=== PATIENT | male | born 1945 | race Caucasian/White ===

== ENCOUNTER 2017-06-17 07:17 | Outpatient (CLI) | payer MEDICARE, BC ==
--- NOTE | 2017-06-17 09:30 | RAD ---
TWO VIEWS CHEST: Date: 06-17-17 Comparison: 11-26-16 FINDINGS: Two views chest demonstrates development of a 19 mm area of soft tissue density in the anterior/infer ior aspect of the left upper lobe. This is compatible with a newly developed mass. Considering the pa tient's history, malignancy cannot be excluded. I do recommend correlation with contrast enhanced CT of the chest. No other obvious lung parenchymal lesions seen. IMPRESSION: Newly developed soft tissue mass in the left upper lobe. Considering the patient's history metastatic disease cannot be excluded. POS: [facility]
--- NOTE | 2017-06-17 09:51 | CT ---
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 FINDINGS: Noncontrast-enhanced CT images of the abdomen and pelvis were obtained. The lung bases are unremarkable. The lesions noted on this chest radiograph are not visible on the C T. The liver and spleen are unremarkable. The pancreas and gallbladder are unremarkable. The left kidn ey has been surgically removed. The right kidney contains small calcifications compatible with renal calculi. Mid pole right renal hypodense lesion is seen most compatible with a cyst or a possible cy stic mass. No evidence of periaortic lymphadenopathy is seen. There is an umbilical hernia with no evidence of bowel herniation through it. No dilated loops of bowel seen. The colon is unremarkable. Moderate multilevel lumbar degenerative changes seen. Previous left-sided nephrectomy. No definite evidence of osseous lesion seen. Exam is limited due t o the fact that IV contrast was not given. POS: [facility]
== END 2017-06-17 07:18 | disposition home or self-care (01) ==
LOC: SCSCT 07:17
PROVIDERS: ATTEND Urology
DX: C64.2 Malignant neoplasm of left kidney, except renal pelvis (principal); R91.8 Other nonspecific abnormal finding of lung field
CPT/HCPCS: 36415; 71030; 74176; 80069; 81001; 85025

== ENCOUNTER 2017-07-08 10:09 | Outpatient (CLI) | payer MEDICARE, BC ==
--- NOTE | 2017-07-08 12:31 | CT ---
CHEST CT SCAN WITHOUT IV CONTRAST: History: 72-year-old male with history of malignant neoplasm in the left kidney except renal pelvis. FINDINGS: There is a 1.7 x 1.8 cm diameter somewhat poorly circumscribed pulmonary nodule in the left upper lob e region anteriorly, probably in the lingula. There is no mediastinal mass or adenopathy. No pleural effusion or pericardial effusion. Post-operative changes in the left upper retroperitoneum evidence f or prior nephrectomy. IMPRESSION: Anterior left upper lung pulmonary nodule evidence for metastasis. This is certainly consistent with a metastasis. POS: [facility]
--- NOTE | 2017-07-08 15:41 | NM ---
EXAM: WHOLE BODY BONE SCAN: History Renal cell cancer. Malignant neoplasm of the kidney. COMPARISON: 04/04/15. TECHNIQUE: The patient was administered 3 mCi of Technetium 99m MDP intravenously. After appropriate delay, who le body imaging was performed. FINDINGS: There is expected distribution of the radiotracer in the soft tissues. There is a photopenic area co mpatible with left nephrectomy. Uptake in both shoulders, bilateral feet and ankles due to degenerat layo change. Uptake in both 1st metatarsophalangeal joint spaces may be due to degenerative versus go ut. Degenerative changes in the cervical spine are noted. IMPRESSION: No scintigraphic evidence of osseous metastases. No additional findings. POS: [facility]
== END 2017-07-08 10:10 | disposition home or self-care (01) ==
LOC: CT 10:09
PROVIDERS: ATTEND Urology
DX: C64.2 Malignant neoplasm of left kidney, except renal pelvis (principal); C78.02 Secondary malignant neoplasm of left lung
CPT/HCPCS: 71250; 78306; A9503

== ENCOUNTER 2017-09-08 14:19 | Outpatient (CLI) | payer MEDICARE, BC ==
--- NOTE | 2017-09-08 14:49 | RAD ---
PA AND LATERAL VIEWS OF CHEST: Date: 09/08/17 HISTORY: Malignant neoplasm of the upper lobe. FINDINGS: The heart size is normal. The lungs are expanded without focal areas of consolidation, pneumothorax, lung masses, or pleural effusions. 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 There are degenerative changes in the spine. IMPRESSION: No radiographic evidence of acute cardiopulmonary process. POS: [facility]
== END 2017-09-08 14:20 | disposition home or self-care (01) ==
LOC: RAD 14:19
PROVIDERS: ATTEND Thoracic Surgery (Cardiothoracic Vascular Surgery)
DX: C34.12 Malignant neoplasm of upper lobe, left bronchus or lung (principal)
CPT/HCPCS: 71046

== ENCOUNTER 2017-11-21 08:15 | Outpatient (CLI) | payer MEDICARE, BC | END 2017-11-21 08:16 | disposition home or self-care (01) | LOC: BICCT 08:15 | PROVIDERS: ATTEND Internal Medicine Hematology & Oncology | DX: C64.2 Malignant neoplasm of left kidney, except renal pelvis (principal); R91.1 Solitary pulmonary nodule; Z90.5 Acquired absence of kidney | CPT/HCPCS: 71250; 74177 ==

== ENCOUNTER 2018-08-07 08:22 | Outpatient (CLI) | payer MEDICARE, BC ==
--- NOTE | 2018-08-07 11:08 | CT ---
CT CHEST WITHOUT CONTRAST CT ABDOMEN AND PELVIS WITHOUT CONTRAST: Date: 08-07-18 Provided Clinical History: History of renal cancer. FINDINGS: Comparison 11-21-17. Post-operative changes of the left hemithorax appear stable. There is new noncalcified 5 mm right low er lobe pulmonary nodule adjacent to the right hemidiaphragm. The lungs appear otherwise free of sign ificant opacity. Heart, pericardium, and great vessels are suboptimally evaluated in the absence of I V contrast material but demonstrates stable unenhanced CT appearance. No pleural fluid or pneumothora x evident. The airway appears patent and of normal caliber. Post-operative changes of left nephrectomy are re-demonstrated. Stable hypodense focus involving the right kidney. Solid abdominal organs are suboptimally evaluated in the absence of IV contrast materia l but demonstrate a stable un-enhanced CT appearance. There is no bowel dilatation, inflammatory fat stranding, free fluid or lymph node enlargement appare nt. Vascular calcifications are seen. The osseous structures demonstrate no concerning osteoblastic or osteolytic lesions. IMPRESSION: 1. Interval development of 5 mm right lower lobe pulmonary nodule, for which follow up is recommended . 2. Otherwise stable exam. POS: [facility]
== END 2018-08-07 08:23 | disposition home or self-care (01) ==
LOC: BICCT 08:22
PROVIDERS: ATTEND Internal Medicine Hematology & Oncology
DX: C64.2 Malignant neoplasm of left kidney, except renal pelvis (principal); R91.1 Solitary pulmonary nodule
CPT/HCPCS: 71250; 74177

== ENCOUNTER 2018-11-06 08:27 | Outpatient (CLI) | payer MEDICARE, BC ==
--- NOTE | 2018-11-06 09:30 | CT ---
CT OF THE CHEST WITHOUT CONTRAST CT OF THE ABDOMEN AND PELVIS WITHOUT CONTRAST: COMPARISON: 08/07/2018. HISTORY: Left renal cell carcinoma status post nephrectomy. Pulmonary nodule is seen on the right lower lobe on prior imaging. TECHNIQUE: 1. Multiple contiguous axial images were obtained in a CT of the chest without contrast. Coronal re formats were performed. 2. Multiple contiguous axial images were obtained in a CT of the abdomen and pelvis without contrast . Coronal reformats were performed. FINDINGS: CT CHEST: The previously seen pulmonary nodule adjacent to the right hemidiaphragm in the right lower lobe was not seen on today's examination. There is stable scarring in the left upper lobe associated with katherin cifications. No suspicious pulmonary nodules are seen. No pneumothorax or pleural effusion are seen . The heart is normal in size without focal cardiac abnormality. No hilar or mediastinal lymphadenopat hy are seen. The chest wall soft tissues are unremarkable. Degenerative changes are seen in the spine. No suspic ious osseous lesions are identified. CT ABDOMEN/PELVIS: The left kidney has been removed. There is a stable 4.5 cm cyst in the mid portion of the right kidn ey. No hydronephrosis is seen. No calcifications are seen in the right kidney. The liver, gallbladder, adrenal glands, spleen, and pancreas are unremarkable, but evaluation is limi irene without IV contrast. The large and small bowel are unremarkable. No abdominal or pelvic lymphadenopathy are seen. Athero sclerotic calcifications are seen in the aorta. The abdominal wall soft tissues are unremarkable. Degenerative changes are seen in the spine without suspicious osseous lesions identified. IMPRESSION: 1. Resolution of previously seen pulmonary nodule. 2. Scarring in the left upper lobe. 3. No evidence of intrathoracic metastatic disease. 4. Right renal cyst. 5. No evidence of intraabdominal/pelvic recurrent or metastatic disease. POS: [facility]
== END 2018-11-06 08:28 | disposition home or self-care (01) ==
LOC: BICCT 08:27
PROVIDERS: ATTEND Internal Medicine Hematology & Oncology
DX: C64.2 Malignant neoplasm of left kidney, except renal pelvis (principal); R91.1 Solitary pulmonary nodule; N28.1 Cyst of kidney, acquired; J98.4 Other disorders of lung
CPT/HCPCS: 71250; 74177

== ENCOUNTER 2019-05-17 08:28 | Outpatient (CLI) | payer MEDICARE, BC ==
--- NOTE | 2019-05-17 14:52 | CT ---
CT CHEST AND ABDOMEN AND PELVIS WITHOUT IV CONTRAST: INDICATIONS: Malignant neoplasm left kidney. Solitary pulmonary nodule. COMPARISON: CT chest, abdomen and pelvis from 08/07/2018. TECHNIQUE: Oral contrast was given. FINDINGS: CHEST: Postoperative changes in the left upper lobe are again noted with parenchymal stranding. Findi ngs are stable. The previously noted new 5 mm nodule in the right lower lobe near the diaphragm is not present on tod ay's exam. There may be a tiny 2 to 3 mm nodule in the right upper lobe anteriorly which appears stable. The mediastinum is unremarkable. No adenopathy. Osseous structures are unremarkable and stable. ABDOMEN AND PELVIS: The liver, spleen and pancreas are unremarkable. The patient is post left nephrec warner. Right adrenal gland and right kidney appear stable. There is a cystic lesion in the mid right k idney which is stable. A tiny, nonobstructing calculus in the mid pole collecting structures of the r ight kidney. The right ureter appears normal. The urinary bladder appears unremarkable. Bowel loops are unremarkable Aorta normal caliber. Nonspecific para-aortic lymph nodes are stable wi thout evidence of adenopathy. Mild prostate hypertrophy. Osseous structures are unremarkable. IMPRESSION: 1. The 5 mm nodular density noted in the right lower lobe on the prior examination is not identified on today's study. The chest is otherwise stable. 2. The right renal cystic lesion is unchanged. The tiny nonobstructing calculus in the upper collecti ng structures of the right kidney is noted. CT abdomen and pelvis is stable from prior exam. POS: [facility]
== END 2019-05-17 08:29 | disposition home or self-care (01) ==
LOC: SCSCT 08:28
PROVIDERS: ATTEND Internal Medicine Hematology & Oncology
DX: C64.2 Malignant neoplasm of left kidney, except renal pelvis (principal); R91.1 Solitary pulmonary nodule; N20.0 Calculus of kidney; J98.4 Other disorders of lung; N28.9 Disorder of kidney and ureter, unspecified
CPT/HCPCS: 71250; 74177

== ENCOUNTER 2020-01-14 11:10 | Outpatient (CLI) | payer MEDICARE, BC ==
--- NOTE | 2020-01-14 13:09 | CT ---
CHEST CT WITHOUT CONTRAST ABDOMEN CT WITHOUT CONTRAST PELVIC CT WITHOUT CONTRAST: HISTORY: Left kidney neoplasm. Solitary pulmonary nodule. Correlation: None. COMPARISON: 11/06/2018, 05/17/2019. FINDINGS: Chest CT: Mediastinum: No mass, lymphadenopathy or hematoma. Aorta: Normal caliber. No periaortic fat stranding. Heart: Normal heart size. No significant pericardial fluid. Trachea and central bronchi: Patent. Pleural spaces: No pleural effusion. Right lung: No masses or consolidation. Minimal chronic changes in the right lower lobe. Stable 2 mm nodule in the right upper lobe. Left lung:Stable linear density with associated linear hyperdensity in the left upper lobe. Stable sc arring. Pneumothorax: None. Abdomen CT: Gallbladder: No gallbladder abnormality. Solid organs: Grossly no solid organ abnormality. Lack of IV contrast limits evaluation. Left adrenal gland is surgically absent. Lymphadenopathy: No gastrohepatic, retrocrural or periportal lymphadenopathy. Kidneys: Stable 4.3 x 6.2 cm right renal cyst. No evidence of right-sided obstructive uropathy. Surgi lj absent left kidney. Mesentery: No mass, lymphadenopathy, free air or free fluid Alimentary canal: No evidence of bowel obstruction. Normal caliber small bowel loops. Normal caliber appendix. Scattered fecal material in a nondistended, nondilated colon. Pelvis CT: No mass, lymphadenopathy, free air or free fluid. Mild enlarged prostate gland with minimal mass effect upon the floor the urinary bladder. No evidence of a bladder calculus. Incidental urachal duct is noted. Osseous structures: Chronic changes to the osseous structures. There are no lytic or blastic lesions. IMPRESSION: 1. Stable postsurgical changes, compatible with left adrenalectomy and left nephrectomy. 2. Stable right renal cyst. 3. No suspicious nodules in the right lung. Stable 2 mm solid nodule in the right upper lobe. 3. Stable scarring in the left lung. Transcribed Date/Time: 01/14/2020 1:17 PM
== END 2020-01-14 11:11 | disposition home or self-care (01) ==
LOC: SCSCT 11:10
PROVIDERS: ATTEND Internal Medicine Hematology & Oncology
DX: C64.2 Malignant neoplasm of left kidney, except renal pelvis (principal); R91.1 Solitary pulmonary nodule; N28.1 Cyst of kidney, acquired; J98.4 Other disorders of lung; Z90.89 Acquired absence of other organs; Z90.5 Acquired absence of kidney
CPT/HCPCS: 71250; 74177